=== PATIENT | male | born 1960 | race Caucasian/White ===

== ENCOUNTER 2017-04-11 05:38 | Outpatient (CLI) | payer MEDICARE ==
[~2017-04-11] VITALS: Ht 185.4 cm; Wt 108.0 kg
[2017-04-11] MEDS ORDERED: LISI1TAB8 PO (11:43)
[2017-04-11] MEDS ORDERED: AMLO10TA2 PO (11:43)
[2017-04-11] MEDS ORDERED: CHOL10003 PO (11:43)
[2017-04-11] MEDS ORDERED: ALPR0.25 PO (11:43)
[2017-04-11] MEDS ORDERED: OMEG100032 PO (11:43)
[2017-04-11] MEDS ORDERED: POTA99TA21 PO (11:43)
== END 2017-04-11 11:55 ==
LOC: PREOP 05:38
PROVIDERS: ATTEND Internal Medicine
DX: Z01.818 Encounter for other preprocedural examination (principal); Z12.11 Encounter for screening for malignant neoplasm of colon

== ENCOUNTER 2017-04-13 08:08 | Day surgery (SDC) | payer MEDICARE ==
[~2017-04-13 08:08] MED LIST: ALPR0.25 PO; AMLO10TA2 PO; CHOL10003 PO; LISI1TAB8 PO; OMEG100032 PO; POTA99TA21 PO
--- OUTSIDE RECORDS SUMMARY | 2017-04-13 08:11 | XMS REPORT | Continuity of Care Document ---
Author Author [facility] Organization [facility] Address Unknown Phone Unavailable Allergies Active Description Code Type Severity Reaction Onset Reported/Identified Relationship to Patient Clinical Status Yes No Known Drug Allergies [id number] Drug Allergy Unknown N/ A 01/13/2016 Medications Problems Date Dx Coded Attending Type Code Diagnosis Diagnosed By 01/19/2016 Ot R42 01/19/2016 Ot Z86.79 01/19/2016 STACY KING OUTBOUND SALES ADVISOR Ot R20.9 01/19/2016 STACY KING OUTBOUND SALES ADVISOR Ot R41.0 01/19/2016 STACY KING OUTBOUND SALES ADVISOR Ot R42 01/20/2016 STACY KING OUTBOUND SALES ADVISOR Ot R20.9 01/20/2016 STACY KING OUTBOUND SALES ADVISOR Ot R41.0 01/20/2016 STACY KING OUTBOUND SALES ADVISOR Ot R42 01/24/2016 STACY KING OUTBOUND SALES ADVISOR Ot R20.2 01/24/2016 STACY KING OUTBOUND SALES ADVISOR Ot R41.0 01/24/2016 STACY KING OUTBOUND SALES ADVISOR Ot R42 02/02/2016 Ot R42 DIZZINESS AND GIDDINESS 02/02/2016 Ot Z86.79 PERSONAL HISTORY OF OTHER DISEASES OF TH 02/08/2016 SATCY KING OUTBOUND SALES ADVISOR Ot R20.9 UNSPECIFIED DISTURBANCES OF SKIN SENSATI 02/08/2016 STACY KING OUTBOUND SALES ADVISOR Ot R41.0 DISORIENTATION, UNSPECIFIED 02/08/2016 STACY KING OUTBOUND SALES ADVISOR Ot R42 DIZZINESS AND GIDDINESS 02/10/2016 STACY KING OUTBOUND SALES ADVISOR Ot R20.2 PARESTHESIA OF SKIN 02/10/2016 STACY KING OUTBOUND SALES ADVISOR Ot R41.0 DISORIENTATION, UNSPECIFIED 02/10/2016 STACY KING OUTBOUND SALES ADVISOR Ot R42 DIZZINESS AND GIDDINESS Procedures Results Encounters ACCT No. Visit Date/Time Discharge Status Pt. Type Provider Facility Loc./Unit Complaint [id number] 01/21/2016 14:11:00 ACT Outpatient STACY KING APRN [facility] CARD [id number] 01/17/2016 12:23:00 ACT Outpatient STACY KING APRN [facility] RAD [id number] 01/13/2016 11:45:00 Document Registration
[2017-04-13 08:20] VITALS: BP 122/81
[2017-04-13] MEDS ORDERED: 1/2 NS IV SOLUTION 1,000 ML IV STA (08:27)
[2017-04-13] MEDS ORDERED: fentaNYL INJECTION 100 MCG/2 ML AMP ONE (09:08)
[2017-04-13] MEDS ORDERED: MIDAZOLAM 2 MG/2 ML (VERSED) VIAL ONE ×2 (09:08→09:43)
[2017-04-13] MEDS ORDERED: LIDOCAINE JELLY 2% (XYLOCAINE) 5 ML TUBE ONE (09:09)
[2017-04-13] MEDS: fentaNYL INJECTION 100 MCG/2 ML AMP IVP PRN ×2 (09:35→09:45)
--- NOTE | 2017-04-13 09:43 | Pre-Op Note & Conscious Sedat ---
Pre-Operative Progress Note H&P Reviewed The H&P was reviewed, patient examined and no changes noted. Date H&P Reviewed: Apr 13, 2017 Time H&P Reviewed: 09:02 Conscious Sedation Pre-Proced ASA Class: 2 Airway Mallampati Classification: (three affiliated appropriate class) I. II. III, IV Lungs Heart ASA score ASA 1: a normal healthy patient ASA 2: a patient with a mild systemic disease (mid diabetes, controlled hypertension, obesity ASA 3: a patient with a severe systemic disease that limits activity (angina , COPD, prior Myocardial infarction) ASA 4: a patient with an incapacitating disease that is a constant threat to life (CHF, renal failure) ASA 5: a moribund patient not expected to survive 24 hrs. (ruptured aneurysm) ASA 6: a declared brain patient whose organs are being harvested. For emergent operations, add the letter E after the classification Grade 2 Sedation Plan: Analgesia, Amnesia, Plan communicated to team members, Discussed options with patient/fam, Discussed risks with patient/fam Note The patient is an appropriate candidate to undergo the planned procedure, sedation, and anesthesia. The patient immediately re-assessed prior to indication. TEETEE VENTURA MD Apr 13, 2017 09:43
[2017-04-13] MEDS: MIDAZOLAM 2 MG/2 ML (VERSED) VIAL IVP PRN ×2 (09:44→09:49)
[2017-04-13 11:00] VITALS: BP 122/81
[2017-04-13 11:20] VITALS: BP 118/88
[2017-04-13 11:50] VITALS: BP 107/80
[2017-04-13] MEDS ORDERED: LIDOCAINE JELLY 2% (XYLOCAINE) 5 ML TUBE TOP ONE (12:15)
--- NOTE | 2017-04-14 09:51 | OPERATIVE REPORT ---
PROCEDURE PHYSICIAN: TEETEE VENTURA DATE OF PROCEDURE: 04/13/2017 SCREENING COLONOSCOPY: INDICATION FOR THE PROCEDURE: Screening. PROCEDURE: The patient was placed in left lateral decubitus position. Prior to undergoing colonoscopy, digital rectal evaluation was performed. Anal sphincter tone was normal and the perianal reflex was intact. No abnormalities were noted to digital inspection of the distal rectal vault. The prostate is mild to moderately enlarged, anodular and nontender to digital inspection. The colonoscope was then inserted into the rectum and under direct visualization, advanced to cecum. The cecum was identified by identification of the ileocecal valve and cecal strap. Photographic documentation was obtained. A careful inspection was made as colonoscope was withdrawn. The quality of prep was good. FINDINGS: There was no evidence for internal or external hemorrhoids. The rectum was unremarkable. There was a diminutive hyperplastic appearing polyp noted at the rectosigmoid junction. It was biopsied and ablated, and submitted for histopathology. Several small sigmoid diverticulum were present, without evidence for diverticulitis. No other sigmoid colonic abnormalities were appreciated. The descending colon, splenic flexure, transverse colon, ascending colon, hepatic flexure and cecum were unremarkable. A/P: 1. Several small sigmoid diverticulum were present, without evidence for diverticulitis. 2. One diminutive hyperplastic appearing polyp was removed from the rectosigmoid junction. The patient also had digital rectal findings compatible with mild to moderate BPH. No other abnormalities were noted on today's procedure. As long as there are no surprises on histopathology report, will advocate consideration for repeat screening colonoscopy in 10 years. I thank you for the referral of this pleasant gentleman. Sincerely, Job ID: [id number] Dictated Date: 04/13/2017 11:48:42 Coal Handler Date: 04/14/2017 09:31:00 / beatrice
== END 2017-04-13 11:00 | disposition home or self-care (01) ==
LOC: ENDO 08:08
PROVIDERS: ATTEND Internal Medicine
DX: Z12.11 Encounter for screening for malignant neoplasm of colon (principal); K62.1 Rectal polyp; K57.30 Diverticulosis of large intestine without perforation or abscess without bleeding; I10 Essential (primary) hypertension; F17.210 Nicotine dependence, cigarettes, uncomplicated; Z79.899 Other long term (current) drug therapy

== ENCOUNTER → 2017-08-06 | Outpatient (CLI) | payer MEDICARE ==
--- NOTE | 2017-08-08 10:59 | Diagnostic Imaging Report ---
PROCEDURE: US Gallbladder. TECHNIQUE: Multiple real-time grayscale images were obtained over the right upper quadrant in various projections. INDICATION: Abdominal pain. Hepatitis C. FINDINGS: The pancreas is largely obscured by bowel gas. The liver is fairly homogeneous with no focal lesion seen. There is hepatopetal flow in the portal vein. The gallbladder demonstrates no stones or wall thickening. No pericholecystic fluid. Hyperechoic foci of the gallbladder neck region up to 4 mm in size are without shadowing and demonstrate no mobility in favor of gallbladder polyps. Sonographic Tom sinus reportedly negative. The CBD is 4 mm in caliber. The right kidney is 10.9 cm in length with no hydronephrosis or focal lesion. IMPRESSION: Gallbladder polyps up to 4 mm in size. Dictated by: Dictated on workstation # [id number]
== END ==
LOC: RAD 07:04
PROVIDERS: ATTEND Family Medicine
DX: B18.2 Chronic viral hepatitis C (principal)
CPT/HCPCS: 76705

== ENCOUNTER → 2018-01-10 | Outpatient (CLI) | payer MEDICARE ==
[2018-01-10 11:15] LABS: AMPHETAMINE SCREEN, URINE NEGATIVE (NEGATIVE); BARBITURATE SCREEN URINE NEGATIVE (NEGATIVE); BENZODIAZEPINES SCREEN URINE NEGATIVE (NEGATIVE); CANNABINOID SCREEN, URINE NEGATIVE (NEGATIVE); METHADONE STAT NEGATIVE (NEGATIVE); METHAMPHETAMINE SCREEN URINE S NEGATIVE (NEGATIVE); OPIATE SCREEN URINE NEGATIVE (NEGATIVE); OXYCODONE STAT NEGATIVE (NEGATIVE); PROPOXYPHENE STAT NEGATIVE (NEGATIVE); TRICYCLIC ANTIDEPRESSANTS SCRE NEGATIVE (NEGATIVE)
[2018-01-10 11:16] LABS: COCAINE SCREEN URINE POSITIVE (NEGATIVE)
== END ==
LOC: LAB 10:35
PROVIDERS: ATTEND Family Medicine
DX: Z91.14 Patient's other noncompliance with medication regimen (principal); F14.90 Cocaine use, unspecified, uncomplicated
CPT/HCPCS: 36415; 80306

== ENCOUNTER → 2019-08-06 | Outpatient (CLI) | payer MEDICARE ==
[~2019-08-06] MED LIST changes: -AMLO10TA2 PO; +AMLO10TA7 PO
--- NOTE | 2019-08-06 08:30 | Diagnostic Imaging Report ---
PROCEDURE: CT head without contrast. TECHNIQUE: Multiple contiguous axial images were obtained through the brain without the use of intravenous contrast. Auto Exposure Controls were utilized during the CT exam to meet ALARA standards for radiation dose reduction. INDICATION: Dizziness and memory loss. Patient has history of brain aneurysm with repair in 1998. Correlation is made with prior CT brain from 12/09/2014. Postsurgical changes in the region of the [place] from aneurysm repair is again noted. Ventricular size and sulcal pattern are stable. There is no midline shift. No acute intra-axial or extra-axial hemorrhage is detected. Area of increased density posteriorly at the pontomedullary junction appears to be stable. Cisterns are patent. Visualized paranasal sinuses are clear. IMPRESSION: Overall stable noncontrast CT brain when compared with exam from 12/09/2014. No acute intracranial process is detected. Dictated by: Dictated on workstation # [id number]
== END ==
LOC: RAD 07:47
PROVIDERS: ATTEND Family Medicine
DX: G47.00 Insomnia, unspecified (principal); R51 Headache; R41.3 Other amnesia; Z86.79 Personal history of other diseases of the circulatory system; R42 Dizziness and giddiness
CPT/HCPCS: 70450

== ENCOUNTER 2020-05-13 12:10 | Emergency (ER) | payer MEDICARE ==
[~2020-05-13] VITALS: Ht 185 cm; Wt 105.0 kg
[~2020-05-13 12:10] MED LIST changes: +LISI1TAB25 PO; -LISI1TAB8 PO
--- NOTE | 2020-05-13 12:29 | ED General ---
General Stated Complaint: RT ARM NUMBNESS Source of Information: Patient Exam Limitations: No Limitations History of Present Illness Date Seen by Provider: May 13, 2020 Time Seen by Provider: 12:24 Initial Comments To ER with right arm numbness. He awakened with dizziness this morning. He is accompanied by his significant other who reports that he didn't call her as he typically does every morning. She called him and he reports that he had a rough night. Dizziness persists but is improved. He reports some numbness over the right shoulder and right neck with the remainder of the right arm is normal. Reports some sensory loss in the right ramirez as well. He has a history of multiple sclerosis. A history of treated hepatitis C. He smokes 2 packs of cigarettes per day and vapes more than he smokes he says. Timing/Duration: 4-6 Hours Severity: Moderate Allergies and Home Medications Allergies Coded Allergies: No Known Drug Allergies (Unverified , 01/13/16) Home Medications Alprazolam 0.25 Mg Tablet, 0.25 MG PO TID PRN for ANXIETY, (Reported) Amlodipine Besylate 10 Mg Tablet, 10 MG PO HS, (Reported) Cholecalciferol (Vitamin D3) 1,000 Unit Tablet, 1,000 UNIT PO DAILY, (Reported) Lisinopril/Hydrochlorothiazide 1 Each Tablet, 2 EACH PO DAILY, (Reported) [place]-3/Dha/Epa/Fish Oil 1,000 Mg Capsule, 1,000 MG PO DAILY, (Reported) Potassium Gluconate 99 Mg Tablet, 99 MG PO DAILY, (Reported) Patient Home Medication List Home Medication List Reviewed: Yes Review of Systems Review of Systems Constitutional: see HPI EENTM: see HPI Respiratory: no symptoms reported Cardiovascular: no symptoms reported Genitourinary: no symptoms reported Musculoskeletal: no symptoms reported Skin: no symptoms reported Psychiatric/Neurological: See HPI Hematologic/Lymphatic: No Symptoms Reported Immunological/Allergic: no symptoms reported Past Ackhcvv-Ibhlwe-Rvbpdh Hx Patient Social History Alcohol Beverage of Choice: Beer Type Used: Cigarettes Recent Hopitalizations: No Seasonal Allergies Seasonal Allergies: No Past Medical History Hypertension Physical Exam Vital Signs Vital Signs - First Documented 05/13/20 12:10 Temp 36.4 Pulse 72 Resp 20 B/P (MAP) 129/89 (102) Pulse Ox 98 Capillary Refill : Height, Weight, BMI Height: 6'1.00" Weight: 238lbs. 0.0oz. [id number]; 31.4 BMI Method: General Appearance: No Apparent Distress, WD/WN, Other (walks unassisted to room 3, ) Eyes: Bilateral Eye Normal Inspection, Bilateral Eye PERRL, Bilateral Eye EOMI Neck: Full Range of Motion, Normal Inspection Respiratory: Normal Breath Sounds, No Accessory Muscle Use, No Respiratory Distress Cardiovascular: Regular Rate, Rhythm, Normal Peripheral Pulses Gastrointestinal: Normal Bowel Sounds, Non Tender, Soft Extremity: Normal Capillary Refill, Normal Inspection Neurologic/Psychiatric: Alert, Oriented x3 Skin: Normal Color, Warm/Dry NIH Stroke Scale NIH : Select: Initial Level of Consciousness: 0=Alert Level of Consciousness-Questio: 0=Answers both month/age LOC Commands: 0=Performs both tasks Gaze: 0=Normal Visual Serrano: 0=No visual loss Facial Movement (Facial Paresi: 0=Normal symmetrical mnt Motor Function-Arms Right: 0=No drift Motor Function-Arms Left: 0=No drift Motor Function-Legs Right: 0=No drift Motor Function-Legs Left: 0=No drift Limb Ataxia: 0=Absent Sensory: 1=Mild to Moderate loss Best Language: 0=No aphasia Dysarthria: 0=Normal Extinction & Inattention: 0=No abnormality NIH Stroke Scale Score: 1 Progress/Results/Core Measures Suspected Sepsis SIRS Temperature: Pulse: Respiratory Rate: Laboratory Tests 05/13/20 12:19: White Blood Count 8.4 Blood Pressure / Mean: Laboratory Tests 05/13/20 12:19: Creatinine 0.94, INR Comment 1.0, Platelet Count 290, Total Bilirubin 0.4 Results/Orders Lab Results Laboratory Tests Test 05/13/20 12:19 05/13/20 12:47 Range/Units White Blood Count 8.4 4.3-11.0 10^3/uL Red Blood Count 5.16 4.35-5.85 10^6/uL Hemoglobin 16.5 13.3-17.7 G/DL Hematocrit 47 40-54 % Mean Corpuscular Volume 90 80-99 FL Mean Corpuscular Hemoglobin 32 25-34 PG Mean Corpuscular Hemoglobin Concent 36 32-36 G/DL Red Cell Distribution Width 12.7 10.0-14.5 % Platelet Count 290 130-400 10^3/uL Mean Platelet Volume 9.4 7.4-10.4 FL Neutrophils (%) (Auto) 53 42-75 % Lymphocytes (%) (Auto) 37 12-44 % Monocytes (%) (Auto) 7 0-12 % Eosinophils (%) (Auto) 2 0-10 % Basophils (%) (Auto) 1 0-10 % Neutrophils # (Auto) 4.4 1.8-7.8 X 10^3 Lymphocytes # (Auto) 3.1 1.0-4.0 X 10^3 Monocytes # (Auto) 0.6 0.0-1.0 X 10^3 Eosinophils # (Auto) 0.2 0.0-0.3 10^3/uL Basophils # (Auto) 0.1 0.0-0.1 10^3/uL Prothrombin Time 13.8 12.2-14.7 SEC INR Comment 1.0 0.8-1.4 Activated Partial Thromboplast Time 30 24-35 SEC D-Dimer 0.37 0.00-0.49 UG/ML Sodium Level 132 L 135-145 MMOL/L Potassium Level 4.1 3.6-5.0 MMOL/L Chloride Level 98 98-107 MMOL/L Carbon Dioxide Level 25 21-32 MMOL/L Anion Gap 9 5-14 MMOL/L Blood Urea Nitrogen 15 7-18 MG/DL Creatinine 0.94 0.60-1.30 MG/DL Estimat Glomerular Filtration Rate > 60 BUN/Creatinine Ratio 16 Glucose Level 93 70-105 MG/DL Calcium Level 9.4 8.5-10.1 MG/DL Corrected Calcium 9.2 8.5-10.1 MG/DL Total Bilirubin 0.4 0.1-1.0 MG/DL Aspartate Amino Transf (AST/SGOT) 18 5-34 U/L Alanine Aminotransferase (ALT/SGPT) 16 0-55 U/L Alkaline Phosphatase 50 40-136 U/L Ammonia 25 11-32 UMOL/L Total Protein 7.9 6.4-8.2 GM/DL Albumin 4.3 3.2-4.5 GM/DL Serum Alcohol < 10 <10 MG/DL Urine Color YELLOW Urine Clarity CLEAR Urine pH 6.0 5-9 Urine Specific [place] <=1.005 1.016-1.022 Urine Protein NEGATIVE NEGATIVE Urine Glucose (UA) NEGATIVE NEGATIVE Urine Ketones NEGATIVE NEGATIVE Urine Nitrite NEGATIVE NEGATIVE Urine Bilirubin NEGATIVE NEGATIVE Urine Urobilinogen 0.2 < = 1.0 MG/DL Urine Leukocyte Esterase NEGATIVE NEGATIVE Urine RBC (Auto) NEGATIVE NEGATIVE Urine RBC NONE /HPF Urine WBC NONE /HPF Urine Squamous Epithelial Cells RARE /HPF Urine Crystals NONE /LPF Urine Bacteria NEGATIVE /HPF Urine Casts NONE /LPF Urine Mucus NEGATIVE /LPF Urine Culture Indicated NO Urine Opiates Screen NEGATIVE NEGATIVE Urine Oxycodone Screen NEGATIVE NEGATIVE Urine Methadone Screen NEGATIVE NEGATIVE Urine Propoxyphene Screen NEGATIVE NEGATIVE Urine Barbiturates Screen NEGATIVE NEGATIVE Ur Tricyclic Antidepressants Screen NEGATIVE NEGATIVE Urine Phencyclidine Screen NEGATIVE NEGATIVE Urine Amphetamines Screen NEGATIVE NEGATIVE Urine Methamphetamines Screen NEGATIVE NEGATIVE Urine Benzodiazepines Screen NEGATIVE NEGATIVE Urine Cocaine Screen NEGATIVE NEGATIVE Urine Cannabinoids Screen NEGATIVE NEGATIVE My Orders Orders - TAMMI MAX APRN Ct Head Wo (05/13/20 12:22) Cbc With Automated Diff (05/13/20 12:22) Comprehensive Metabolic Panel (05/13/20 12:22) Alcohol (05/13/20 12:22) Ua Culture If Indicated (05/13/20 12:22) Drug Screen Stat (Urine) (05/13/20 12:22) Protime With Inr (05/13/20 12:22) Partial Thromboplastin Time (05/13/20 12:22) Fibrin Degradation Products (05/13/20 12:22) Ekg Tracing (05/13/20 12:22) Ammonia (05/13/20 12:22) Mri Brain W/O Contrast (05/13/20 12:30) Mri Cervical Spine W/O Contras (05/13/20 12:30) Vital Signs/I&O 05/13/20 12:10 Temp 36.4 Pulse 72 Resp 20 B/P (MAP) 129/89 (102) Pulse Ox 98 Capillary Refill : Diagnostic Imaging Diagonstic Imaging: MRI Comments NAME: PRISCILLA DAVISON MED REC#: [id number] PT STATUS: REG ER : 1960 PHYSICIAN: TAMMI MAX APRN ADMIT DATE: 05/13/20/ER Draft Date of Exam:05/13/20 MRI BRAIN W/O CONTRAST Clinical indication: Patient with right arm and leg numbness and dizziness. Patient's history of multiple sclerosis and MRI safe aneurysmal clips in the brain 1990s. Exam: MRI of the brain performed without IV contrast. Sequences include axial DWI, ADC map, axial T2, axial FLAIR, axial T1, coronal gradient echo, and sagittal T1. Comparison: Head CT without contrast dated 08/06/2019. MRI of the brain performed without and with IV contrast dated 01/13/2016. Findings: There is no evidence of acute cerebral infarct, intracranial hemorrhage, brain herniation or midline shift. Again seen postoperative changes with craniotomy of the right temporal region and 2 aneurysmal clips in the suprasellar region. This is better seen on comparison head CT. Again seen mild brain parenchymal volume loss which appears appropriate for patient's age. There is multiple focal and patchy areas of high T2 signal white matter changes involving both cerebral hemispheres, likely representing chronic small vessel ischemic disease. There is a stable 7 mm x 9 mm area of mixed high/low T1-T2 signal with blooming artifact consistent with cavernous malformation seen in the left posterior patti/pontomedullary junction region. There is no evidence of acute hemorrhagic changes or adjacent parenchymal edema. Besides the suprasellar region, the [place] vascular structures show no gross abnormality as visualized. The pituitary gland, sella, and suprasellar regions are unremarkable as visualized. Basal cisterns show no significant abnormality. The extra cranial soft tissues, skull, and orbits are unremarkable. There is a moderate-sized mucus retention cyst in the right maxillary sinus which is stable. There is mild mucosal thickening involving left maxillary sinus and ethmoid sinus which has slightly progressed. Mastoid air cells are clear. IMPRESSION: 1: Stable MRI of the brain with no evidence of acute intracranial process. There is no evidence of acute cerebral infarct or intracranial hemorrhage. 2: Stable postoperative changes with right temporal craniotomy and two aneurysmal clips in the suprasellar region. This is better seen on comparison head CT. 3: Stable 9 mm cavernous malformation involving the left posterior aspect of the patti/pontomedullary junction region. There is no evidence of associated acute hemorrhage or parenchymal edema in the region. 4: There is no significant change to the multiple focal and patchy areas of high T2 signal white matter changes involving both cerebral hemispheres which may be related to patient's history of multiple sclerosis/demyelinating disease, but superimposed chronic small vessel ischemic disease cannot be excluded. 5: Age related brain parenchymal changes. Dictated on workstation # [id number] Dict: 05/13/20 1355 Trans: 05/13/20 1415 [facility] [id number] Interpreted by: ALBAN MICHEL MD Electronically signed by: Departure Impression Primary Impression: Multiple sclerosis exacerbation Disposition: 01 HOME, SELF-CARE Condition: Stable Departure-Patient Inst. Decision time for Depature: 14:28 Referrals: ZAY MITCHELL DO (PCP/Family) Primary Care Physician Patient Instructions: Multiple Sclerosis, Adult (DC) Add. Discharge Instructions: 1. Follow-up with Dr. Mitchell this week. Call today to make an appointment to be seen 2. Return to ER for any concerns 3. Scripts Prednisone (Prednisone) 10 Mg Tab.ds.pk 10 MG PO DAILY, #42 EA Take 6 tabs(60mg)daily,decrease by 1 tab(10mg)every other day. Prov: TAMMI MAX APRN 05/13/20 Pantoprazole Sodium (Protonix) 40 Mg Tablet.dr 40 MG PO DAILY, #10 TAB Prov: TAMMI MAX APRN 05/13/20 TAMMI MAX APRN May 13, 2020 12:29
[2020-05-13 12:31] LABS: BASOPHILS # (AUTO) 0.1 10^3/uL (0.0-0.1); BASOPHILS % (AUTO) 1 % (0-10); EOSINOPHILS # (AUTO) 0.2 10^3/uL (0.0-0.3); EOSINOPHILS % (AUTO) 2 % (0-10); HEMATOCRIT 47 % (40-54); HEMOGLOBIN 16.5 G/DL (13.3-17.7); LYMPHOCYTES # (AUTO) 3.1 X 10^3 (1.0-4.0); LYMPHOCYTES % (AUTO) 37 % (12-44); MEAN CORPUSCULAR HEMOGLOBIN 32 PG (25-34); MEAN CORPUSCULAR HGB CONC 36 G/DL (32-36); MEAN CORPUSCULAR VOLUME 90 FL (80-99); MEAN PLATELET VOLUME 9.4 FL (7.4-10.4); MONOCYTES # (AUTO) 0.6 X 10^3 (0.0-1.0); MONOCYTES % (AUTO) 7 % (0-12); NEUTROPHILS # (AUTO) 4.4 X 10^3 (1.8-7.8); NEUTROPHILS % (AUTO) 53 % (42-75); PLATELET COUNT 290 10^3/uL (130-400); RED CELL DISTRIBUTION WIDTH 12.7 % (10.0-14.5); WHITE BLOOD COUNT 8.4 10^3/uL (4.3-11.0)
[2020-05-13 12:43] LABS: FIBRIN DEGRADATION PRODUCTS 0.37 UG/ML (0.00-0.49); PROTHROMBIN TIME PATIENT 13.8 SEC (12.2-14.7)
[2020-05-13 12:44] LABS: ALBUMIN 4.3 GM/DL (3.2-4.5); CHLORIDE 98 MMOL/L (98-107); POTASSIUM 4.1 MMOL/L (3.6-5.0); SODIUM 132 MMOL/L (135-145)
[2020-05-13 12:45] LABS: AMMONIA 25 UMOL/L (11-32); CALCIUM 9.4 MG/DL (8.5-10.1)
[2020-05-13 12:46] LABS: GLUCOSE 93 MG/DL (70-105); TOTAL PROTEIN 7.9 GM/DL (6.4-8.2)
[2020-05-13 12:47] LABS: CARBON DIOXIDE 25 MMOL/L (21-32)
[2020-05-13 12:48] LABS: BILIRUBIN,TOTAL 0.4 MG/DL (0.1-1.0)
[2020-05-13 12:50] LABS: ALKALINE PHOSPHATASE 50 U/L (40-136); CREATININE SERUM 0.94 MG/DL (0.60-1.30); GFR ESTIMATED > 60
[2020-05-13 12:51] LABS: BUN/CREATININE RATIO 16
[2020-05-13 12:53] LABS: ALANINE AMINOTRANSFERASE 16 U/L (0-55)
[2020-05-13 12:56] LABS: BILIRUBIN,URINE NEGATIVE (NEGATIVE); CLARITY,URINE CLEAR; COLOR,URINE YELLOW; GLUCOSE, URINE (UA) NEGATIVE (NEGATIVE); KETONES,URINE NEGATIVE (NEGATIVE); LEUKOCYTE ESTERASE ,URINE NEGATIVE (NEGATIVE); NITRITE,URINE NEGATIVE (NEGATIVE); PROTEIN,URINE NEGATIVE (NEGATIVE)
[2020-05-13 13:12] LABS: BACTERIA,URINE NEGATIVE /HPF; SQUAMOUS EPITHELIAL CELL,UR RARE /HPF
[2020-05-13 13:16] LABS: AMPHETAMINE SCREEN, URINE NEGATIVE (NEGATIVE); BARBITURATE SCREEN URINE NEGATIVE (NEGATIVE); BENZODIAZEPINES SCREEN URINE NEGATIVE (NEGATIVE); CANNABINOID SCREEN, URINE NEGATIVE (NEGATIVE); COCAINE SCREEN URINE NEGATIVE (NEGATIVE); METHADONE STAT NEGATIVE (NEGATIVE); METHAMPHETAMINE SCREEN URINE S NEGATIVE (NEGATIVE); OPIATE SCREEN URINE NEGATIVE (NEGATIVE); OXYCODONE STAT NEGATIVE (NEGATIVE); PROPOXYPHENE STAT NEGATIVE (NEGATIVE); TRICYCLIC ANTIDEPRESSANTS SCRE NEGATIVE (NEGATIVE)
--- NOTE | 2020-05-13 14:16 | Diagnostic Imaging Report ---
PROCEDURE: CT head without contrast. TECHNIQUE: Multiple contiguous axial images were obtained through the brain without the use of intravenous contrast. Auto Exposure Controls were utilized during the CT exam to meet ALARA standards for radiation dose reduction. INDICATION: Right arm and leg numbness. COMPARISON: MRI brain without contrast 05/13/2020. CT head without contrast 12/09/2009, 08/06/2019. FINDINGS: Again seen is aneurysm clip anterior to the sella. Streak artifact mildly limits evaluation. No intracranial hemorrhage, mass effect, hydrocephalus or extra-axial fluid collections. No CT evidence of a territorial infarction. Stable hyperdense mass in the pontomedullary junction measuring 0.9 x 0.6 cm. Right frontal craniotomy. The visualized paranasal sinuses and mastoids are unremarkable. IMPRESSION: 1. No acute intracranial or cervical spine CT findings. 2. Stable hyperdense subcentimeter mass in the pontomedullary junction. 3. Right frontal craniotomy and aneurysm clip anterior to the sella is also stable. Dictated by: Dictated on workstation # [id number]
--- NOTE | 2020-05-13 14:16 | Diagnostic Imaging Report ---
Clinical indication: Patient with right arm and leg numbness and dizziness. Patient's history of multiple sclerosis and MRI safe aneurysmal clips in the brain 1990s. Exam: MRI of the brain performed without IV contrast. Sequences include axial DWI, ADC map, axial T2, axial FLAIR, axial T1, coronal gradient echo, and sagittal T1. Comparison: Head CT without contrast dated 08/06/2019. MRI of the brain performed without and with IV contrast dated 01/13/2016. Findings: There is no evidence of acute cerebral infarct, intracranial hemorrhage, brain herniation or midline shift. Again seen postoperative changes with craniotomy of the right temporal region and 2 aneurysmal clips in the suprasellar region. This is better seen on comparison head CT. Again seen mild brain parenchymal volume loss which appears appropriate for patient's age. There is multiple focal and patchy areas of high T2 signal white matter changes involving both cerebral hemispheres, likely representing chronic small vessel ischemic disease. There is a stable 7 mm x 9 mm area of mixed high/low T1-T2 signal with blooming artifact consistent with cavernous malformation seen in the left posterior patti/pontomedullary junction region. There is no evidence of acute hemorrhagic changes or adjacent parenchymal edema. Besides the suprasellar region, the [place] vascular structures show no gross abnormality as visualized. The pituitary gland, sella, and suprasellar regions are unremarkable as visualized. Basal cisterns show no significant abnormality. The extra cranial soft tissues, skull, and orbits are unremarkable. There is a moderate-sized mucus retention cyst in the right maxillary sinus which is stable. There is mild mucosal thickening involving left maxillary sinus and ethmoid sinus which has slightly progressed. Mastoid air cells are clear. IMPRESSION: 1: Stable MRI of the brain with no evidence of acute intracranial process. There is no evidence of acute cerebral infarct or intracranial hemorrhage. 2: Stable postoperative changes with right temporal craniotomy and two aneurysmal clips in the suprasellar region. This is better seen on comparison head CT. 3: Stable 9 mm cavernous malformation involving the left posterior aspect of the patti/pontomedullary junction region. There is no evidence of associated acute hemorrhage or parenchymal edema in the region. 4: There is no significant change to the multiple focal and patchy areas of high T2 signal white matter changes involving both cerebral hemispheres which may be related to patient's history of multiple sclerosis/demyelinating disease, but superimposed chronic small vessel ischemic disease cannot be excluded. 5: Age related brain parenchymal changes. Dictated by: Dictated on workstation # [id number]
--- NOTE | 2020-05-13 14:21 | Diagnostic Imaging Report ---
CLINICAL INDICATION: Patient with right arm and leg numbness and dizziness. Patient with history of multiple sclerosis. EXAM: MRI of the cervical spine performed without IV contrast. Sequences include sagittal T2, sagittal T1, sagittal T2 fat-sat, and axial T2. COMPARISON: MRI of the cervical spine dated 07/08/2010. FINDINGS: There is motion artifact which greatly limits evaluation of the sagittal T1 sequence and slightly degrades the sagittal T2 sequence. There is no acute cervical spine fracture or dislocation. There is again noted straightening of the mid and upper cervical spine posture. There is small amount of Modic type I degenerative signal changes involving the C6-C7 endplate regions which has developed in interim. Previously seen Modic type I degenerative signal changes at the C5-C6 level has resolved. There are degenerative spurs anteriorly involving the mid to lower cervical spine. Limited visualization of posterior fossa shows no significant abnormality. Visualized portions of the cervical cord is normal cord caliber. The artifact does obscure evaluation for subtle abnormalities of the cervical cord. There is no gross cervical cord abnormal signal seen on this exam. There is no significant paraspinal soft tissue abnormality. C1-C2: There is no significant central canal narrowing. C2-C3: There is mild bilateral facet arthropathy. There is no significant central spinal canal or neural foramen narrowing. C3-C4: There is mild bilateral facet arthropathy. There is small right uncinate spurs again seen. There is moderate right neural foramen narrowing again noted. There is no significant left neural foramen narrowing. There is no significant central canal narrowing. C4-C5: There is mild bilateral facet arthropathy. There is no significant central spinal canal or neural foramen narrowing. C5-C6: There is progression of diffuse disc bulge with now moderate loss of disc space height and progression of bilateral uncinate spurs. There is mild bilateral facet arthropathy. There is severe bilateral neural foramen narrowing which has progressed in the interim. There is progression of mild central canal narrowing. C6-C7: There is interval development of a small left paracentral disc bulge with annular tear. There is mild bilateral facet arthropathy with progression of ligamentum flavum buckling. There is mild central canal stenosis which has progressed. There is progression of small left uncinate spurs. There is [id number] left neural foramen narrowing and [id number] right neural foramen narrowing which has progressed. C7-T1: There is no significant central spinal canal or neural foramen narrowing. IMPRESSION: 1: There is interval progression of multilevel cervical spine degenerative disc disease which is described in detail above. 2: There is progression of the C5-C6 diffuse disc bulge and uncinate spurs. There is severe bilateral neural foramen narrowing and mild central canal stenosis which has progressed. 3: There is development of a C6-C7 small left paracentral disc bulge with annular tear. There is mild central canal narrowing which has progressed. There is also progression of left uncinate spurs. There is now [id number] left neural foramen narrowing and [id number] right neural foramen narrowing which has progressed. 4: There is significant motion artifact limiting evaluation of some sequences. There is no gross abnormal cord signal seen on this exam. Dictated by: Dictated on workstation # [id number]
[2020-05-13] MEDS ORDERED: PANT40TA2 PO (14:29)
[2020-05-13] MEDS ORDERED: PRED10TA22 PO (14:29)
[2020-05-13 14:39] VITALS: BP 124/75
== END 2020-05-13 14:38 | disposition home or self-care (01) ==
LOC: EDUNIT# 12:12 → ER 12:15
DX: G35 Multiple sclerosis (principal); I10 Essential (primary) hypertension; F17.210 Nicotine dependence, cigarettes, uncomplicated; F17.290 Nicotine dependence, other tobacco product, uncomplicated
CPT/HCPCS: 70450; 70551; 72141; 80053; 80306; 81000; 82140; 85025; 85379; 85610; 85730; G0480; 36415; 80320; 93005